=== PATIENT | male | born 1965 | race Caucasian/White ===

== ENCOUNTER 2017-05-26 13:17 | Emergency (ER) | payer BC ==
[2017-05-26 14:28] LABS: BASO % 0.5 % (0.0-1.0); EOS # 0.1 10^3/uL (0.0-0.50); EOS % 0.6 % (0.0-3.0); HEMATOCRIT 43.8 % (42.0-52.0); HEMOGLOBIN 15.3 g/dl (13.5-17.5); IMMATURE GRANULOCYTE % 0.2 % (0-3.0); LYMPH # 0.9 10^3/uL (1.5-4.5); LYMPH % 10.7 % (24.0-44.0); MEAN CORPUSCULAR HEMOGLOBIN 30.2 pg (27.0-33.0); MEAN CORPUSCULAR HGB CONC 34.9 g/dl (32.0-36.5); MEAN CORPUSCULAR VOLUME 86.6 fl (80.0-96.0); MONO # 0.5 10^3/uL (0.0-0.8); MONO % 6.2 % (0.0-5.0); NEUTROPHILS # 6.6 10^3/uL (1.8-7.7); NEUTROPHILS % 81.8 % (36.0-66.0); PLATELET COUNT, AUTOMATED 167 10^3/uL (150-450); RED BLOOD COUNT 5.06 10^6/uL (4.30-6.10); RED CELL DISTRIBUTION WIDTH 12.8 % (11.5-14.5); WHITE BLOOD COUNT 8.1 10^3/uL (4.0-10.0)
[2017-05-26 14:35] LABS: D-DIMER QUANT 328.7 ng/ml (<500)
[2017-05-26] MEDS: ASPIRIN 81 MG CHEW TABLET PO (14:41)
[2017-05-26 14:46] LABS: ALBUMIN 4.4 GM/DL (3.2-5.2); ALBUMIN/GLOBULIN RATIO 1.22 (1.00-1.93); ALKALINE PHOSPHATASE 76 U/L (45-117); ALT/SGPT 42 U/L (12-78); ANION GAP 6 MEQ/L (8-16); AST/SGOT 30 U/L (7-37); BILIRUBIN,DIRECT 0.3 MG/DL (0.0-0.2); BLOOD UREA NITROGEN 21 MG/DL (7-18); CALCIUM LEVEL 8.7 MG/DL (8.5-10.1); CARBON DIOXIDE LEVEL 29 MEQ/L (21-32); CHLORIDE LEVEL 103 MEQ/L (98-107); CPK CREATINE PHOSPHOKINASE 707 U/L (39-308); CREATININE FOR GFR 1.38 MG/DL (0.70-1.30); GLOMERULAR FILTRATION RATE 57.2 (>56); GLUCOSE, FASTING 101 MG/DL (70-100); LIPASE 165 U/L (73-393); MB/CK RELATIVE INDEX 0.28 (< OR =4); SODIUM LEVEL 138 MEQ/L (136-145); TROPONIN I < 0.02 NG/ML (< 0.10)
[2017-05-26] MEDS ORDERED: ISOVUE-370 76% 100ML VIAL (Q9967) As Ordered (14:55)
[2017-05-26 17:48] LABS: CK-MB VALUE MASS 1.1 NG/ML (<3.6); CPK CREATINE PHOSPHOKINASE 596 U/L (39-308); MB/CK RELATIVE INDEX 0.18 (< OR =4); TROPONIN I < 0.02 NG/ML (< 0.10)
== END 2017-05-26 18:56 | disposition home or self-care (01) ==
LOC: M ED 13:17
DX: R07.89 Other chest pain (principal); N18.3 Chronic kidney disease, stage 3 (moderate); R94.31 Abnormal electrocardiogram [ECG] [EKG]; I45.10 Unspecified right bundle-branch block; F10.21 Alcohol dependence, in remission
CPT/HCPCS: Q9967

== ENCOUNTER → 2017-06-10 | Outpatient (REF) | payer BC ==
[2017-06-10 16:22] LABS: CHOLESTEROL LEVEL 142 MG/DL (<200); CHOLESTEROL RISK RATIO 2.679 (<5); HDL CHOLESTEROL 53 MG/DL (>40); NON-HDL-C 89 MG/DL; TRIGLYCERIDES LEVEL 90 MG/DL (<150)
[2017-06-10 16:48] LABS: ERYTHROCYTE SEDIMENTATION RATE 4 mm/hr (0-20)
[2017-06-14 00:09] LABS: Lyme Disease IgG/IgM Antibodie <0.91 ISR (0.00-0.90); Lyme Disease IgM Ab Quantitati <0.80 index (0.00-0.79)
== END ==
LOC: M LABDRAW1 15:51
DX: R07.2 Precordial pain (principal)
CPT/HCPCS: 80061